=== PATIENT | female | born 1945 | race Caucasian/White ===

== ENCOUNTER → 2016-11-30 | Outpatient (CLI) | payer MEDICARE, OTHER ==
[~2016-11-30] MED LIST: CHOL2000 PO
== END ==
LOC: LAB 18:37
PROVIDERS: ATTEND Nurse Practitioner Family
DX: R30.0 Dysuria (principal)
CPT/HCPCS: 87088

== ENCOUNTER → 2016-12-16 | Outpatient (CLI) | payer MEDICARE, OTHER ==
--- NOTE | 2016-12-16 18:07 | Diagnostic Imaging Report ---
EXAMINATION: Bilateral renal ultrasound. INDICATION: Frequent urinary tract infections. FINDINGS: There are no prior studies available for comparison. Both kidneys are identified. The right kidney measures 9.0 x 4.0 x 4.0 cm in size while the left kidney is estimated to be 9.8 x 5.6 x 4.2 cm. There is no evidence for a solid renal mass or for hydronephrosis of either kidney. The renal cortices are normal in thickness and echogenicity. There is no shadowing from the kidneys to suggest nephrolithiasis. The urinary bladder is only partially filled and consequently not well evaluated. There is no obvious bladder abnormality evident. Both ureteral jets are noted. IMPRESSION: 1. There is no evidence for a solid renal mass or for an acute abnormality of either kidney. 2. The urinary bladder is grossly unremarkable. Dictated by: Dictated on workstation # [id number]
--- NOTE | 2016-12-16 18:50 | Diagnostic Imaging Report ---
EXAMINATION: Pelvic ultrasound. INDICATION: Frequent urinary tract infections. FINDINGS: There are no previous pelvic ultrasound examinations available for comparison. This study was performed to evaluate the bladder. The bladder is only partially filled and consequently not optimally evaluated. There is no obvious bladder abnormality evident. The prevoid bladder volume was 114.6 cc. Following voiding, there was still approximately 41.7 cc of urine within the bladder. IMPRESSION: There is approximately 35% residual urine volume within the bladder following voiding. Dictated by: Dictated on workstation # [id number]
== END ==
LOC: RAD 09:28
PROVIDERS: ATTEND Nurse Practitioner Family
DX: N39.0 Urinary tract infection, site not specified (principal)
CPT/HCPCS: 76770; 76857

== ENCOUNTER → 2017-04-01 | Outpatient (CLI) | payer MEDICARE, OTHER ==
--- NOTE | 2017-04-02 12:07 | Diagnostic Imaging Report ---
Bilateral screening mammogram 2D views with tomosynthesis. The current study was also evaluated with a Computer Aided Detection (CAD) system. INDICATION: Screening. No current complaints stated on the questionnaire. COMPARISON: 08/09/2015 FINDINGS: The breasts are composed of scattered fibroglandular densities. There are scattered benign-appearing calcifications. Allowing for technique and positional differences, no suspicious change is seen. IMPRESSION: No significant change. ACR BI-RADS Category 2: Benign findings. Result letter will be mailed to the patient. Note: At least 10% of breast cancer is not imaged by mammography. Dictated by: Dictated on workstation # [id number]
== END ==
LOC: RAD 10:42
PROVIDERS: ATTEND Nurse Practitioner Family
DX: Z12.31 Encounter for screening mammogram for malignant neoplasm of breast (principal)

== ENCOUNTER 2017-10-05 15:44 | Emergency (ER) | payer MEDICARE, OTHER ==
[~2017-10-05] VITALS: Ht 162.6 cm; Wt 63.5 kg
[2017-10-05] MEDS ORDERED: ASPIRIN 81 MG CHEW (CHILDREN'S ASA) PO ONE (16:15)
[2017-10-05 16:22] LABS: BASOPHILS % (AUTO) 1 % (0-10); EOSINOPHILS # (AUTO) 0.1 10^3/uL (0.0-0.3); EOSINOPHILS % (AUTO) 2 % (0-10); HEMATOCRIT 43 % (35-52); HEMOGLOBIN 15.1 G/DL (11.5-16.0); LYMPHOCYTES # (AUTO) 3.6 X 10^3 (1.0-4.0); LYMPHOCYTES % (AUTO) 46 % (12-44); MEAN CORPUSCULAR HEMOGLOBIN 33 PG (25-34); MEAN CORPUSCULAR HGB CONC 35 G/DL (32-36); MEAN CORPUSCULAR VOLUME 94 FL (80-99); MEAN PLATELET VOLUME 10.3 FL (7.4-10.4); MONOCYTES # (AUTO) 0.7 X 10^3 (0.0-1.0); MONOCYTES % (AUTO) 9 % (0-12); NEUTROPHILS # (AUTO) 3.5 X 10^3 (1.8-7.8); NEUTROPHILS % (AUTO) 44 % (42-75); PLATELET COUNT 214 10^3/uL (130-400); RED CELL DISTRIBUTION WIDTH 11.6 % (10.0-14.5); WHITE BLOOD COUNT 7.9 10^3/uL (4.3-11.0)
--- NOTE | 2017-10-05 16:25 | ED Chest Pain ---
General Chief Complaint: Chest Pain Stated Complaint: CP Source: patient Exam Limitations: no limitations (JUSTINO LEA APRN) History of Present Illness Date Seen by Provider: Oct 05, 2017 Time Seen by Provider: 16:23 Initial Comments to ER by her with reports of chest pain. This first began on 11/11.This began with physical exertion while she was chasing her cat around the house. She had associated shortness of breath. Since then she has had recurrent intermittent chest pain. She has no pain currently. She also has intermittent left-sided jaw and neck pain. She states that she had a stress test done in 2013 here that was normal. She is a nonsmoker. She does have high cholesterol and is unable to tolerate medications for this. She has a strong family history of coronary artery disease. She's never had a heart catheterization. Timing/Duration: intermittent, 3-4 days Severity/Quality: moderate Location: central Radiation: neck Activities at Onset: none ASA po HEALTHCARE EDUCATOR: Yes NTG SL HEALTHCARE EDUCATOR: No Associated Symptoms: shortness of breath (JUSTINO LEA APRN) Allergies and Home Medications Allergies Coded Allergies: Tetracycline (Unverified Allergy, Severe, RASH, 10/24/10) sumatriptan (Unverified Allergy, Severe, SWEELLING IN THROAT, 10/24/10) sumatriptan succinate (Unverified Allergy, Severe, SWEELLING IN THROAT, 26/03) Uncoded Allergies: SULFA (Allergy, Intermediate, RASH, 10/24/10) Home Medications Alprazolam 0.25 Mg Tablet, 0.25 MG PO Q8H PRN for ANXIETY take 1/2 to 1 tablet every 8 hours for anxiety Prescribed by: ORTIZ FUNK on 10/05/17 7871 Cholecalciferol 2,000 Unit Capsule, 2,000 UNIT PO DAILY, (Reported) Patient Home Medication List Home Medication List Reviewed: Yes (JUSTINO LEA APRN) Review of Systems Constitutional: see HPI EENTM: No Symptoms Reported Respiratory: No Symptoms Reported Gastrointestinal: See HPI Genitourinary: No Symptoms Reported Musculoskeletal: no symptoms reported Skin: no symptoms reported Psychiatric/Neurological: No Symptoms Reported Endocrine: No Symptoms Reported (JUSTINO LEA APRN) Past Csbyzse-Qbnujo-Ekrgba Hx Patient Social History Alcohol Use: Denies Use Recreational Drug Use: No Smoking Status: Never a Smoker Recent Foreign Travel: No Contact w/Someone Who Travel: No Recent Hopitalizations: No Physical Abuse: No Sexual Abuse: No (JUSTINO LEA APRN) Past Medical History Respiratory: No Cardiac: No Neurological: No Gastrointestinal: Yes (HX COLON POLYPS; FAMILY HX COLON CANCER) Musculoskeletal: No Endocrine: No Nursing Suicide Risk Score: 0 (JUSTINO LEA APRN) Physical Exam Vital Signs Vital Signs - First Documented 10/05/17 15:45 Temp 97.2 Pulse 68 Resp 18 B/P (MAP) 125/84 (98) Pulse Ox 94 (BLESSINGORTIZ NEON SIGN ERECTOR) Vital Signs Capillary Refill : Less Than 3 Seconds (JUSTINO LEA APRN) General Appearance: No Apparent Distress, WD/WN HEENT: PERRL/EOMI, TMs Normal Neck: Full Range of Motion, Normal Inspection Respiratory: No Accessory Muscle Use, No Respiratory Distress Gastrointestinal: Normal Bowel Sounds, Non Tender, Soft Extremity: Normal Capillary Refill Neurologic/Psychiatric: Alert, Oriented x3, No Motor/Sensory Deficits Skin: Normal Color, Warm/Dry (JUSTINO LEA APRN) Progress/Results/Core Measures Results/Orders Lab Results Laboratory Tests Test 10/05/17 15:55 Range/Units White Blood Count 7.9 4.3-11.0 10^3/uL Red Blood Count 4.60 4.35-5.85 10^6/uL Hemoglobin 15.1 11.5-16.0 G/DL Hematocrit 43 35-52 % Mean Corpuscular Volume 94 80-99 FL Mean Corpuscular Hemoglobin 33 25-34 PG Mean Corpuscular Hemoglobin Concent 35 32-36 G/DL Red Cell Distribution Width 11.6 10.0-14.5 % Platelet Count 214 130-400 10^3/uL Mean Platelet Volume 10.3 7.4-10.4 FL Neutrophils (%) (Auto) 44 42-75 % Lymphocytes (%) (Auto) 46 H 12-44 % Monocytes (%) (Auto) 9 0-12 % Eosinophils (%) (Auto) 2 0-10 % Basophils (%) (Auto) 1 0-10 % Neutrophils # (Auto) 3.5 1.8-7.8 X 10^3 Lymphocytes # (Auto) 3.6 1.0-4.0 X 10^3 Monocytes # (Auto) 0.7 0.0-1.0 X 10^3 Eosinophils # (Auto) 0.1 0.0-0.3 10^3/uL Basophils # (Auto) 0.0 0.0-0.1 10^3/uL Prothrombin Time 13.1 12.2-14.7 SEC INR Comment 1.0 0.8-1.4 Activated Partial Thromboplast Time 27 24-35 SEC D-Dimer 0.28 0.00-0.49 UG/ML Sodium Level 141 135-145 MMOL/L Potassium Level 4.0 3.6-5.0 MMOL/L Chloride Level 110 H 98-107 MMOL/L Carbon Dioxide Level 19 L 21-32 MMOL/L Anion Gap 12 5-14 MMOL/L Blood Urea Nitrogen 13 7-18 MG/DL Creatinine 0.79 0.60-1.30 MG/DL Estimat Glomerular Filtration Rate > 60 BUN/Creatinine Ratio 16 Glucose Level 85 70-105 MG/DL Calcium Level 9.2 8.5-10.1 MG/DL Magnesium Level 2.1 1.8-2.4 MG/DL Total Bilirubin 1.5 H 0.1-1.0 MG/DL Aspartate Amino Transf (AST/SGOT) 21 5-34 U/L Alanine Aminotransferase (ALT/SGPT) 23 0-55 U/L Alkaline Phosphatase 65 40-136 U/L Myoglobin 35.5 10.0-92.0 NG/ML Troponin I < 0.30 <0.30 NG/ML C-Reactive Protein High Sensitivity 0.09 0.00-0.50 MG/DL B-Type Natriuretic Peptide 20.2 <100.0 PG/ML Total Protein 6.4 6.4-8.2 GM/DL Albumin 4.4 3.2-4.5 GM/DL Lipase 19 8-78 U/L (ORTIZ FUNK) My Orders Orders - ORTIZ FUNK Hs C Reactive Protein (10/05/17 17:00) (ORTIZ FUNK) Medications Given in ED Current Medications Medications Dose Ordered Sig/[place] Route Start Time Stop Time Status Last Admin Dose Admin Aspirin 324 mg ONCE ONCE PO 10/05/17 16:15 10/05/17 16:16 DC 10/05/17 16:47 81 MG (ORTIZ FUNK) Vital Signs/I&O 10/05/17 10/05/17 15:45 18:28 Temp 97.2 Pulse 68 85 Resp 18 18 B/P (MAP) 125/84 (98) 140/78 (98) Pulse Ox 94 97 (ORTIZ FUNK) Progress Progress Note : Progress Note 1620 assumed care from Justino Lea APRN. Patient continues to be free of pain. She does report that she either had sternal pain that radiates to her back or pain begins in her neck and radiates to her jaw on the right side. The only time she notes the pain is during exertion. 1715 the patient continues to be free of chest pain. She is concerned that anxiety is leading to her chest pain. She also reports that her mom had a history of angina. Since her pain is relieved with rest and aspirin, it could be related to angina or anxiety. 1730 patient continues to be free of chest pain. Lab workup, EKG and chest ray essentially all normal. Discussed these results with Dr. Miller per phone, commended outpatient management. She has a scheduled appointment with her in 2 days and will arrange for a cardiac evaluation after that. 1800 discharge instructions and return precautions reviewed with the patient. All questions answered. (ORTIZ FUNK) Initial ECG Impression Date: Oct 05, 2017 Initial ECG Impression Time: 15:47 Initial ECG Rate: 70 Initial ECG Rhythm: Normal Sinus Initial ECG Intervals: Normal Initial ECG Intervals FL 120, QRSD 78, QT 400, QTC 432. [place] P 28, QRS -35, T 77. Initial ECG Impression: Normal Initial ECG Comparisson: No Previous ECG Available Comment Reviewed with Dr. Rangel, concurred with interpretation. (ORTIZ UFNK) Diagnostic Imaging Diagonstic Imaging: Xray Plain Films/CT/US/NM/MRI: chest Comments NAME: ADILSON BETANCOURT Judah [facility] REC#: [id number] PT STATUS: REG ER : 1945 PHYSICIAN: REMIGIO RANGEL MD ADMIT DATE: 10/05/17/ER Draft Date of Exam:10/05/17 CHEST 1 VIEW, AP/PA ONLY INDICATION: Chest pain. Portable upright AP view of the chest is obtained. Comparison is made to study of 11/18/2013. FINDINGS: Heart size and pulmonary vascularity are within normal limits. There is mild air trapping in the upper lobes. Tiny ovoid density in the right upper lobe is well-circumscribed and may represent vessel or granuloma. There is no evidence of pneumothorax, consolidation, or significant pleural fluid. IMPRESSION: Probable emphysema without acute abnormality identified. Dictated on workstation # [id number] Dict: 10/05/17 1636 Trans: 10/05/17 1639 [id number] Interpreted by: JOVANI GOTTI MD Electronically signed by: Reviewed: Reviewed by Me (ORTIZ FUNK) Departure Impression Primary Impression: Chest pain on exertion Additional Impression: Anxiety Disposition: HOME, SELF-CARE Condition: Improved Departure-Patient Inst. Decision time for Depature: 17:50 (ORTIZ FUNK) Referrals: MOMO MILLER MD (PCP/Family) Primary Care Physician Patient Instructions: Angina (DC), Anxiety, Adult (DC), Chest Pain That Is Not Caused by the Heart (DC) Add. Discharge Instructions: Limit excessive physical activity. Keep your scheduled follow-up appointment with Dr. Miller for Thursday. Return to the emergency department immediately for chest pain, especially if it is not relieved with rest or occurs during rest or is associated with nausea, vomiting, or sweating. Take aspirin 81 mg daily. Use the prescription for anxiety medicine as needed. All discharge instructions reviewed with patient and/or family. Voiced understanding. Scripts Alprazolam (Xanax) 0.25 Mg Tablet 0.25 MG PO Q8H PRN for ANXIETY, #12 TAB 0 Refills take 1/2 to 1 tablet every 8 hours for anxiety Prov: ORTIZ FUNK 10/05/17 Copy Copies To 1: MOMO MILLER MD, PETER J APRN Oct 05, 2017 16:24 ORTIZ FUNK Oct 05, 2017 16:35
[2017-10-05 16:35] LABS: PROTHROMBIN TIME PATIENT 13.1 SEC (12.2-14.7)
--- NOTE | 2017-10-05 16:40 | Diagnostic Imaging Report ---
INDICATION: Chest pain. Portable upright AP view of the chest is obtained. Comparison is made to study of 11/18/2013. FINDINGS: Heart size and pulmonary vascularity are within normal limits. There is mild air trapping in the upper lobes. Tiny ovoid density in the right upper lobe is well-circumscribed and may represent vessel or granuloma. There is no evidence of pneumothorax, consolidation, or significant pleural fluid. IMPRESSION: Probable emphysema without acute abnormality identified. Dictated by: Dictated on workstation # [id number]
[2017-10-05 16:41] LABS: ALANINE AMINOTRANSFERASE 23 U/L (0-55); ALBUMIN 4.4 GM/DL (3.2-4.5); ALKALINE PHOSPHATASE 65 U/L (40-136); BILIRUBIN,TOTAL 1.5 MG/DL (0.1-1.0); BUN/CREATININE RATIO 16; CALCIUM 9.2 MG/DL (8.5-10.1); CARBON DIOXIDE 19 MMOL/L (21-32); CHLORIDE 110 MMOL/L (98-107); CREATININE SERUM 0.79 MG/DL (0.60-1.30); GFR ESTIMATED > 60; GLUCOSE 85 MG/DL (70-105); LIPASE 19 U/L (8-78); MAGNESIUM 2.1 MG/DL (1.8-2.4); SODIUM 141 MMOL/L (135-145); TOTAL PROTEIN 6.4 GM/DL (6.4-8.2)
[2017-10-05 16:48] LABS: MYOGLOBIN SERUM 35.5 NG/ML (10.0-92.0)
[2017-10-05] MEDS ORDERED: ALPR0.25 PO (17:57)
[2017-10-05 18:28] VITALS: BP 140/78
== END 2017-10-05 18:28 | disposition home or self-care (01) ==
LOC: EDUNIT# 15:44 → ER 15:46
DX: R07.89 Other chest pain (principal); F41.9 Anxiety disorder, unspecified; Z87.19 Personal history of other diseases of the digestive system; Z88.1 Allergy status to other antibiotic agents; Z88.2 Allergy status to sulfonamides; Z88.8 Allergy status to other drugs, medicaments and biological substances; Z80.0 Family history of malignant neoplasm of digestive organs
CPT/HCPCS: 36415; 71045; 80053; 83690; 83735; 83874; 83880; 84484; 85025; 85379; 85610; 85730; 86141; 93005; 93041

== ENCOUNTER → 2017-10-13 | Outpatient (CLI) | payer MEDICARE, OTHER ==
[~2017-10-13] MED LIST changes: +ALPR0.25 PO
== END ==
LOC: CARD 08:43
PROVIDERS: ATTEND Internal Medicine Cardiovascular Disease
DX: R07.89 Other chest pain (principal); E78.4 Other hyperlipidemia; I08.1 Rheumatic disorders of both mitral and tricuspid valves; Z82.49 Family history of ischemic heart disease and other diseases of the circulatory system
CPT/HCPCS: 93306

== ENCOUNTER 2017-10-27 11:42 | Day surgery (SDC) | payer MEDICARE, OTHER ==
[~2017-10-27] VITALS: Ht 162.6 cm; Wt 62.6 kg
[2017-10-27] VITALS (7 sets, daily range): BP systolic 102–117; BP diastolic 66–89
[2017-10-27] MEDS ORDERED: NS IV 1000 ML 1,000 ML ONE (12:10)
[2017-10-27] MEDS ORDERED: HEParin (CATH LAB) 2,000 ML IV ONE (12:11)
[2017-10-27] MEDS ORDERED: LIDOCAINE 1% INJ 20 ML 20 ML VIAL ONE (12:14)
[2017-10-27] MEDS ORDERED: NS IV 1000 ML 1,000 ML IV SCH ×3 (12:29→14:05)
[2017-10-27 12:36] LABS: MEAN PLATELET VOLUME 10.1 FL (7.4-10.4); RED BLOOD COUNT 4.87 10^6/uL (4.35-5.85); RED CELL DISTRIBUTION WIDTH 11.4 % (10.0-14.5); WHITE BLOOD COUNT 7.9 10^3/uL (4.3-11.0)
[2017-10-27 12:48] LABS: ALBUMIN 4.6 GM/DL (3.2-4.5); BILIRUBIN,TOTAL 1.9 MG/DL (0.1-1.0); CALCIUM 9.5 MG/DL (8.5-10.1); CREATININE SERUM 0.95 MG/DL (0.60-1.30); TOTAL PROTEIN 6.7 GM/DL (6.4-8.2)
[2017-10-27] MEDS ORDERED: TRIM100T PO (12:55)
[2017-10-27] MEDS ORDERED: RT-ALBUINH IH (12:55)
[2017-10-27] MEDS ORDERED: DOCU100T2 PO (12:56)
[2017-10-27] MEDS ORDERED: CHOL5000 PO (12:57)
[2017-10-27] MEDS ORDERED: RANI150T46 PO (12:58)
[2017-10-27] MEDS ORDERED: NARA2.5T PO (12:58)
[2017-10-27] MEDS ORDERED: ALPR0.254 PO (12:59)
[2017-10-27] MEDS ORDERED: ASPI-999 PO (12:59)
[2017-10-27] MEDS ORDERED: LACT1TAB25 PO (13:00)
[2017-10-27] MEDS ORDERED: MULT400C3 PO (13:00)
[2017-10-27] MEDS ORDERED: diphenhydrAMINE 50 MG/ML INJ (BENADRYL) ONE (13:22)
[2017-10-27] MEDS ORDERED: fentaNYL INJECTION 100 MCG/2 ML AMP ONE (13:22)
[2017-10-27] MEDS ORDERED: MIDAZOLAM 5 MG/5 ML (VERSED) VIAL ONE (13:22)
--- NOTE | 2017-10-27 14:05 | Cardiac Procedure Note-CS/ASA ---
Pre-Procedure Note Pre-Op Procedure Note H&P Reviewed The H&P was reviewed, patient examined and no changes noted. Date H&P Reviewed: Oct 27, 2017 Time H&P Reviewed: 13:20 Conscious Sedation Pre-Proced Time Reviewed: 13:20 ASA Class: 3 Airway Mallampati Classification: (point hope ira appropriate class) I. II. III, IV Lungs Heart ASA score ASA 1: a normal healthy patient ASA 2: a patient with a mild systemic disease (mid diabetes, controlled hypertension, obesity ASA 3: a patient with a severe systemic disease that limits activity (angina , COPD, prior Myocardial infarction) ASA 4: a patient with an incapacitating disease that is a constant threat to life (CHF, renal failure) ASA 5: a moribund patient not expected to survive 24 hrs. (ruptured aneurysm) ASA 6: a declared brain patient whose organs are being harvested. For emergent operations, add the letter E after the classification Grade 2 Sedation Plan: Analgesia, Amnesia, Plan communicated to team members, Discussed options with patient/fam, Discussed risks with patient/fam Note The patient is an appropriate candidate to undergo the planned procedure, sedation, and anesthesia. The patient immediately re-assessed prior to indication. ALEJANDRA PINTO MD FACP FAC CCDS Oct 27, 2017 14:05
[2017-10-27] MEDS ORDERED: ROSU20TA PO (14:09)
--- NOTE | 2017-10-27 14:10 | Discharge Inst-Cardiology ---
Discharge Inst-Cardiac Discharge Medications New Medications: Rosuvastatin Calcium (Crestor) 20 Mg Tablet 20 MG PO DAILY, #30 TAB 5 Refills Continued Medications: Albuterol Sulfate (Proair Hfa) 1 Puff Puff 2 PUFF IH Q6H PRN for SHORTNESS OF BREATH, PUFF 1 PUFF = 90 MCG Alprazolam (Alprazolam) 0.25 Mg Tablet 0.125 MG PO Q8H PRN for ANXIETY, TAB Aspirin (Aspirin) 81 Mg Tab.chew 81 MG PO DAILY, TAB Cholecalciferol (Vitamin D3) (Vitamin D3) 5,000 Unit Capsule 5000 UNIT PO DAILY, CAP Docusate Sodium (Docusate Sodium) 100 Mg Tablet 200 MG PO HS, TAB Lactobacillus Acidophilus (Probiotic Acidophilus) 1 Each Tablet 1 EACH PO BID, TAB Multivit-Min/Folic Acid/Vit K1 (Multi For Her 50 Plus Softgel) 1 Each Capsule 1 EACH PO DAILY, CAP Naratriptan HCl (Amerge) 2.5 Mg Tablet 2.5 MG PO PRN for Migraine, TAB Ranitidine HCl (Zantac) 150 Mg Tablet 150 MG PO BID, TAB Trimethoprim (Trimethoprim) 100 Mg Tablet 50 MG PO DAILY, TAB Orders-Post D/C & Referrals Pneu Vac Indicated: Yes ALEJANDRA PINTO MD FACP FAC CCDS Oct 27, 2017 14:10
--- NOTE | 2017-10-27 14:10 | Discharge Inst-Post CATH ---
Discharge Inst-CATH Post Cardiac Cath D/C Inst Follow Up/Plan F/u with Dr Cardona in 6 weeks CARDIAC CATH DISCHARGE INSTRUCTIONS *Hold Metformin for 48 hours post heart cath. ACTIVITY * Go Home directly and rest. * Limit activity of the leg (or wrist if it was used) for 7 days including aerobics, swimming, jogging, bicycling, etc. * Restrict stair-climbing for 7 days if possible, if not, climb up with your non -cath leg, then bring together on the same step. * Avoid lifting, pushing, pulling or excessive movement of the affected extremity for 7 days. * Customary sexual activity may be resumed after 2 days-use caution not to use a position that strains or causes pain to the affected extremity. * No driving for 24 hours. * NO SMOKING. * Avoid straining for bowel movements for 7 days. * Gentle walking on level ground is allowed. * Returning to work will depend on the type of procedure and the results. Your doctor will discuss this with you. CALL YOUR DOCTOR FOR ANY OF THE FOLLOWING: *If bleeding from the puncture site occurs- Apply gentle pressure to site with clean cloth and call your doctor or EMS. * If a knot or lump forms under the skin, increases in size, or causes pain. * If bruising appears to be worsening or moving further down your leg instead of disappearing. * Temperature above 101 F. CARE OF YOUR GROIN INCISION; * Bruising or purple discoloration of the skin near the puncture site is common. * You may shower only, no bathtub bathing for 5 days. Be careful to avoid slipping as your leg may feel stiff. * If a closure device was used on your femoral artery, please see the attached guide regarding care of the device and your leg. * REMOVE the dressing from your groin the next day after your procedure in the shower. CARE OF YOUR WRIST INCISION; * Bruising or purple discoloration of the skin near the puncture site is common. * You may shower. * DO NOT submerge wrist. * Remove dressing in 24 hours. ALEJANDRA CARDONA MD [facility] CCDS Oct 27, 2017 14:10
[2017-10-27] MEDS ORDERED: PATIENT MAY USE OWN MEDS, ALL PO SCH (14:15)
--- NOTE | 2017-10-27 16:27 | CARDIAC CATHETERIZATION ---
DATE OF SERVICE: 10/27/2017 CARDIAC CATHETERIZATION REPORT The patient is a 72-year-old lady who has symptoms of exertional chest discomfort that is suggestive of new onset of angina pectoris. She experienced chest discomfort on a treadmill, which was the limiting factor in the stress test. Last, she had an abnormal stress test and a cardiac catheterization was recommended, which was carried out today after having obtained an informed consent. PROCEDURE: She was brought to the cardiac catheterization laboratory in a fasting state. Right groin was prepared and draped in usual sterile fashion. Lidocaine 1% with local anesthesia. Modified Seldinger technique was used to advance a 5-Turkmen sheath into the right femoral artery, 5-Turkmen JL4 catheter for left coronary angiography, 5-Turkmen JR4 catheter for right coronary angiography, 5-Turkmen pigtail catheter was used for left heart catheterization, left ventricular angiography. At the end of the procedure following removal of the diagnostic catheters, angiography of right femoral artery was carried out through the sheath. Mynx was used to achieve hemostasis. She tolerated the procedure well. HEMODYNAMICS: Left ventricular end-diastolic pressure following coronary angiography was 5 mmHg. There is no significant pressure gradient on pullback across the aortic valve. Ascending aortic pressure was 103/62 with a mean 82 mmHg. LEFT VENTRICULAR ANGIOGRAPHY: Left ventricular angiography was carried out in the right anterior oblique projection. Global left ventricular systolic function is normal. No regional wall motion abnormalities are seen. Left ventricular ejection fraction 60 to 65%. CORONARY ANGIOGRAPHY: Mild coronary calcification is present. Left main coronary artery does not exhibit significant obstructive disease. Left anterior descending artery has mild to moderate diffuse plaques. Left circumflex artery has mild to moderate diffuse plaques. Right coronary artery is dominant and does not seem to have significant disease. CONCLUSIONS: 1. Angiographically mild to moderate coronary artery disease involving the left coronary system. 2. Normal global left ventricular systolic function with ejection fraction of 60-65%. 3. Low normal left ventricular end-diastolic pressure. 4. No significant mitral regurgitation. DISCUSSION AND RECOMMENDATIONS: Based on the results of the study, chest discomfort does not appear to be of coronary origin. Continuing risk factor modification is advised. Outpatient followup is advised. Job ID: [id number] DocumentID: [id number] Dictated Date: 10/27/2017 13:59:14 Switchboard Operator Date: 10/27/2017 16:26:42 Dictated By: ALEJANDRA PINTO MD, MA, FACP, FACC,
== END 2017-10-27 17:15 | disposition home or self-care (01) ==
LOC: CATH 11:42
PROVIDERS: ATTEND Internal Medicine Cardiovascular Disease
DX: R07.89 Other chest pain (principal); I25.10 Atherosclerotic heart disease of native coronary artery without angina pectoris; E78.4 Other hyperlipidemia; I34.0 Nonrheumatic mitral (valve) insufficiency; Z82.49 Family history of ischemic heart disease and other diseases of the circulatory system; Z79.82 Long term (current) use of aspirin; Z79.899 Other long term (current) drug therapy; Z87.891 Personal history of nicotine dependence
CPT/HCPCS: 36415; 80053; 80061; 85027; 85610; 85730; 87081; 93458